=== PATIENT | female | born 1995 | race Caucasian/White ===

== ENCOUNTER 2022-05-23 13:52 | Emergency (ER) | payer OTHER ==
[~2022-05-23] VITALS: Ht 154.9 cm; Wt 77.1 kg
[2022-05-23 15:40] VITALS: BP 142/81
--- NOTE | 2022-05-23 15:40 | NUR ---
DYSURIA (BURNING) X 5 MONTHS. REQUESTING STD TEST
[2022-05-23 16:07] LABS: BILIRUBIN,URINE NEGATIVE (NEGATIVE); COLOR,URINE YELLOW (YELLOW); LEUKOCYTE ESTERASE ,URINE NEGATIVE (NEGATIVE); NITRITE, URINE POSITIVE (NEGATIVE); PH,URINE 6.5 (5.0-8.0); PROTEIN,URINE TRACE mg/dl (NEGATIVE); UGLUCOSE NEGATIVE (NEGATIVE)
[2022-05-23 16:19] LABS: RBC,URINE 0-2 /HPF (0-2)
[2022-05-23 16:20] LABS: BACTERIA,URINE Moderate /HPF (None Seen); MUCUS,URINE Few /LPF (None Seen); SQUAMOUS EPITHELIAL CELL,UR Few /HPF (None Seen)
[2022-05-23] MEDS ORDERED: CEFTRIAXONE 1 G VIAL IM ONE (17:00)
[2022-05-23] MEDS ORDERED: DOXYCYCLINE HYCLATE (100 MG) 100 MG TABLET PO ONE (17:00)
[2022-05-23] MEDS ORDERED: DOXY100C2 PO (17:05)
[2022-05-23] MEDS ORDERED: LIDOCAINE /MPF 1% VIAL 5 ML VIAL ONE (17:10)
[2022-05-23] MEDS ORDERED: CEFTRIAXONE 1 G VIAL ONE (17:11)
[2022-05-23] MEDS ORDERED: DOXYCYCLINE HYCLATE (100 MG) 100 MG TABLET ONE (17:11)
--- NOTE | 2022-05-23 17:25 | NUR ---
PT STATED THE BEST NUMBER TO REACH HER AT IS [phone] AND SHE VERBALLY GAVE CONSENT TO GIVE RESULTS TO ANY NURSE AT HER FACILITY.
== END 2022-05-23 17:27 | disposition home or self-care (01) ==
LOC: ER 14:03
DX: Z20.2 Contact with and (suspected) exposure to infections with a predominantly sexual mode of transmission (principal); R30.0 Dysuria; Z88.8 Allergy status to other drugs, medicaments and biological substances
CPT/HCPCS: 99283; 96372; 87077; 87086; 84703; 87186; 81001; 87491; 87591; J0696; J3490; 36415; 86592; 86593